=== PATIENT | female | born 1985 | race Hispanic/Latino ===

== ENCOUNTER 2022-05-16 06:16 | Day surgery (SDC) | payer BC ==
[2022-05-15 11:49] VITALS: BMI 22.8
[2022-05-16] MEDS ORDERED: HYDROmorphone 2 MG/ML VIAL ONE (06:20)
[2022-05-16] MEDS ORDERED: Fentanyl 250 MCG/5 ML VIAL ONE (06:20)
[2022-05-16] MEDS ORDERED: Dexmedetomidine 200 MCG/2 ML VIAL ONE (06:21)
[2022-05-16] MEDS ORDERED: SUGAMMADEX SODIUM 200 MG/2 ML VIAL ONE (06:21)
[2022-05-16] MEDS ORDERED: Neomycin-Polymyxin 1 ML AMP ONE (07:00)
[2022-05-16] MEDS ORDERED: Thrombin 5000 UNITS/5 ML VIAL ONE (07:00)
[2022-05-16] MEDS ORDERED: Scopolamine 1.5 mg/72 hour Patch ONE (07:10)
[2022-05-16] MEDS ORDERED: Midazolam HCl 2 mg/2 ml Vial ONE (07:10)
[2022-05-16] MEDS ORDERED: Sodium Chloride 0.9% 100 ML ONE ×2 (07:33→12:12)
[2022-05-16] MEDS ORDERED: CEFAZOLIN 2 GM VIAL ONE ×2 (07:33→12:12)
[2022-05-16] MEDS ORDERED: Ondansetron PF 4 MG/2 ML Vial ONE ×2 (08:17→12:12)
[2022-05-16] MEDS ORDERED: PROPOFOL 200 MG/20 ML VIAL ONE (08:17)
[2022-05-16] MEDS ORDERED: PHENYLEPHRINE-NS 100 MCG/ML 10 ML SYRINGE ONE (08:17)
[2022-05-16] MEDS ORDERED: Lidocaine 1% PF 5 ML VIAL ONE (08:17)
[2022-05-16] MEDS ORDERED: Rocuronium Bromide 10 MG/ML (10ML VIAL) ONE (08:17)
[2022-05-16] MEDS ORDERED: Ketorolac Tromethamine 30 MG/ML VIAL ONE (08:17)
[2022-05-16] MEDS ORDERED: Dexamethasone 20 MG/5 ML VIAL ONE (08:17)
[2022-05-16] MEDS ORDERED: Promethazine HCl 25 MG/ML VIAL ONE (09:43)
[2022-05-16] MEDS ORDERED: Fentanyl 100 MCG/2 ML VIAL ONE (09:59)
[2022-05-16] MEDS ORDERED: HYDROcodone/Acetaminophen 5/325 mg Tablet ONE ×2 (12:33→12:46)
== END 2022-05-16 13:48 | disposition home or self-care (01) ==
LOC: SDC 06:16
PROVIDERS: ATTEND Neurological Surgery
PROC: 0RG10A0 Fusion of Cervical Vertebral Joint with Interbody Fusion Device, Anterior Approach, Anterior Column, Open Approach (ICD-10-PCS; principal; 2022-05-16)
DX: M50.122 Cervical disc disorder at C5-C6 level with radiculopathy (principal); G89.4 Chronic pain syndrome; J45.909 Unspecified asthma, uncomplicated; Z79.899 Other long term (current) drug therapy
CPT/HCPCS: C1713; C1889; J1100; J1170; J1885; J2250; J2405; J2550; J2704; J3010; J3490